=== PATIENT | female | born 1955 | race Caucasian/White ===

== ENCOUNTER 2017-03-28 10:03 | Emergency (ER) | payer MEDICARE | END 2017-03-28 18:30 | disposition short-term general hospital (02) | LOC: ER 10:03 | DX: K92.2 Gastrointestinal hemorrhage, unspecified (principal); E86.0 Dehydration; E87.6 Hypokalemia; E87.3 Alkalosis; E87.8 Other disorders of electrolyte and fluid balance, not elsewhere classified; C22.1 Intrahepatic bile duct carcinoma; C79.9 Secondary malignant neoplasm of unspecified site; J45.909 Unspecified asthma, uncomplicated; I10 Essential (primary) hypertension; Z90.710 Acquired absence of both cervix and uterus; Z90.49 Acquired absence of other specified parts of digestive tract; Z79.899 Other long term (current) drug therapy; Z79.82 Long term (current) use of aspirin; Z88.8 Allergy status to other drugs, medicaments and biological substances; Z91.040 Latex allergy status; Z88.1 Allergy status to other antibiotic agents; Z88.5 Allergy status to narcotic agent | CPT/HCPCS: 36415; 96361; 96365; 96366; 96367; 96375; 96376; J7040 ==